=== PATIENT | male | born 1970 | race Caucasian/White ===

== ENCOUNTER 2020-01-08 01:54 | Outpatient (CLI) | payer MEDICAID, SELFPAY ==
[2020-01-09 15:04] LABS: SARS-CoV-2 RNA Not Detected (NotDetected); SARS-CoV-2 RNA Source Nasal/Nares
== END 2020-01-08 02:14 ==
PROVIDERS: Visit Provider Surgery
DX: Z11.59 Encounter for screening for other viral diseases (principal); Z01.818 Encounter for other preprocedural examination
CPT/HCPCS: U0003

== ENCOUNTER 2020-01-13 09:06 | Day surgery (SDC) | payer MEDICAID, SELFPAY ==
--- NOTE | 2020-01-13 06:55 | W.COLOREPORT ---
Date of service: 01/13/20 Time of Service: 11:32 Colonoscopy Report Date of procedure: 01/13/20 Pre-op diagnosis general: Colon Cancer screening Post-op diagnosis procedure note: other (ascending polyp, sigmoid polyp x2, rectal polyp) Procedure: Colonoscopy with polypectomy Surgeon: Courtney Tim Anesthesia proc note operative: other (General/ASA 2/Rj Carvajal, MARIA VICTORIA) Estimated blood loss (mL): 5 Pathology: other (Ascending colon, sigmoid polyp x2, rectal polyp) Complications: None Disposition: same day Indications: The patient is here for Colonoscopy pre-op. He has no family history of colon cancer. He has not had any bowel habit changes. -Discussed colonoscopy bowel prep as well as the procedure. Discussed possible complications of the procedure to include bleeding, pain, perforation, missed small lesion/polyp, sore throat, aspiration and adverse reaction to the medications. Questions were answered to patient?s satisfaction. No guarantees were implied or given. Prep: Miralax/Dulcolax Procedure Start Time: 10:12 Procedure End Time: 11:04 Retraction Time: 44 minutes Findings: 4 small sessile polyps Procedure Description: After informed consent was obtained the patient was taken to the procedure room and placed in a left decubitous position. Monitors were applied and a time out was done. The patients name, date of , procedure, allergies to medications and metal in their body was reviewed. The patient was then sedated. Once sedated and comfortable a rectal exam was done. External exam was normal. Internal exam revealed a normal sphincter tone and no palpable masses. The prostate felt smooth. The scope was then introduced and retro-flexed. No internal hemorrhoids were identified. The scope was then advanced to the cecum without difficulty. The ileocecal valve and appendiceal orifice were identified. The prep was good. The scope was then slowly retracted over 44 minutes back into the rectum. Polyps were removed with cold forceps in the ascending colon, sigmoid colon x2 and rectum x1. The polyp in the ascending colon was small and sessile. It took 20 minutes to remove this polyp due to its location behind a fold. There was also moderate diverticulosis of the sigmoid colon. The scope was removed and the patient was woken up and taken back to Same day surgery in stable condition. The patient tolerated the procedure well and there were no immediate complications. Follow up: The patient should follow up in 3-5 years unless they develop changes in bowel habits or other new gastrointestinal complaints.
--- NOTE | 2020-01-13 06:57 | W.PM.DSUDISC ---
Discharge Plan Disposition Patient Disposition: HOME Condition: Good Discharge Details Reason For Visit: colonoscopy Attending Provider: Courtney Tim Primary Care Provider: None,None Home Meds and New Rx's Prescriptions: Continued nicotine (polacrilex) 2 mg gum 2 mg buccal Q2H RF: 0 epinephrine [EpiPen] 0.3 mg/0.3 mL auto-injector 0.3 mg IM ONCE RF: 0 Chantix Starting Month Box 0.5 mg (11)- 1 mg (42) tablets,dose pack See Rx Instructions PO PER PKG DIR RF: 0 meloxicam 15 mg tablet 15 mg PO DAILY RF: 0 magnesium 200 mg tablet 200 mg PO DAILY RF: 0 hydroxychloroquine [Plaquenil] 200 mg tablet 200 mg PO DAILY RF: 0 medical marijuana inhalation RF: 0 Discontinued polyethylene glycol 3350 17 gram/dose powder 238 g PO ONCE Qty: 238 RF: 0 bisacodyl [Dulcolax (bisacodyl)] 5 mg tablet,delayed release (DR/EC) 5 mg PO ONCE Qty: 4 RF: 0 Discharge Instructions Instructions: Colorectal Polyps (DC), Diverticulosis (GEN) Additional Instructions: Findings: 4 polyps Follow up:3-5 years Please call if you develop: fevers >101.5 Nausea or Vomiting Abdominal pain that is not transient DAY SURGERY UNIT POST ENDOSCOPY INSTRUCTIONS 1. Because there will be medication in your system for the next 24 hours, you may feel a little sleepy. Your coordination will be affected. Therefore: a. Do not drive or operate dangerous equipment for 24 hours. b. Do not drink alcohol beverages for 24 hours (not even beer). c. Plan to go home and rest for the day. 2. Generally there are no restrictions on your activity after a day or so has gone by, but you may feel a bit fatigued for a few days. 3 After you arrive home you may have a light meal and return to a normal diet as you can tolerate it without feeling sick to your stomach. 4. After surgery, you may feel pain or discomfort. This should be only transient, but if it persists please contact your doctor. 5. If there are any questions regarding the findings of your procedure, please feel free to contact your doctor. 6. If you are unable to contact your doctor with a problem, contact the hospital at [phone]. 7. Continue all your regular medications unless directed otherwise. I understand the above instructions and have no questions. Signature of Patient or Responsible Adult Escort Date/Time Name of Responsible Adult Escort Signature of Nurse Date/Time Activity:: Activity as Tolerated Diet:: high fiber diet Discharge Orders Discharge Orders: Discharge Order (Routine); Ordered 01/13/20 Ordered By: Courtney Tim
[2020-01-13 09:15] VITALS: BP 125/82; PULSE 72; RESP 16; TEMP 36.3; O2SAT 99
[2020-01-13] MEDS: Lactated Ringers 1,000 ML 80 ML IV (09:30)
--- NOTE | 2020-01-13 10:24 | BOWEL_PTH ---
PATIENT: Curtis Colin LOC: [facility] U#:[id number] AGE/SX: 50/M ROOM: RE01/13/[address]: Courtney Tim MD : [id number] BED: DIS: 01/13/2020 SPEC #: [id number] RECD: 01/13/20 12:43 STATUS: HIEN REQ #: [id number] NATA: 01/13/20 10:[address]: Courtney Tim DEPT: Surgical Specimen RECD BY: Emily Maradiaga ENTERED: 01/13/20 12:44 SP TYPE: Bowel OTHR DR: None Tissues: 1 - BIOPSY BOWEL 2 - BIOPSY BOWEL 3 - BIOPSY BOWEL Procedures: GROSS AND MICRO LEVEL 4 Comments: [id number]
[2020-01-13 11:54] VITALS: BP 131/77; PULSE 56; RESP 18; TEMP 36.2; O2SAT 99
== END 2020-01-13 12:17 | disposition home or self-care (01) ==
PROVIDERS: Visit Provider Surgery
PROC: 0DJD8ZZ Inspection of Lower Intestinal Tract, Via Natural or Artificial Opening Endoscopic (ICD-10-PCS; CPT 45378; principal; 2020-01-13 09:45)
DX: Z12.11 Encounter for screening for malignant neoplasm of colon (principal); K57.30 Diverticulosis of large intestine without perforation or abscess without bleeding; D12.2 Benign neoplasm of ascending colon; K62.1 Rectal polyp
CPT/HCPCS: 45380; 88305; J2001

== ENCOUNTER 2020-10-12 14:05 | Emergency (ER) | payer MEDICAID, SELFPAY ==
[2020-10-12 14:15] VITALS: BP 132/68; PULSE 65; RESP 16; TEMP 36.8; O2SAT 98
--- NOTE | 2020-10-12 14:36 | ED.GENADUL_ITS ---
Discharge Plan Disposition Patient Disposition: HOME Condition: Good Discharge Details Clinical Impression: Sebaceous cyst, Cellulitis Primary Care Provider: Unknown,Unknown ED Provider: Emily Dickson Home Meds and New Rx's Prescriptions: New cephalexin 500 mg capsule 500 mg PO Q6H 7 Days Qty: 28 RF: 0 Continued nicotine (polacrilex) 2 mg gum 2 mg buccal Q2H RF: 0 epinephrine [EpiPen] 0.3 mg/0.3 mL auto-injector 0.3 mg IM ONCE RF: 0 Chantix Starting Month Box 0.5 mg (11)- 1 mg (42) tablets,dose pack See Rx Instructions PO PER PKG DIR RF: 0 meloxicam 15 mg tablet 15 mg PO DAILY RF: 0 magnesium 200 mg tablet 200 mg PO DAILY RF: 0 hydroxychloroquine [Plaquenil] 200 mg tablet 200 mg PO DAILY RF: 0 medical marijuana inhalation RF: 0 Discharge Instructions Instructions: Cellulitis (ED) Additional Instructions: Please follow-up for like removal in 72 hours Follow-up with surgery as you will likely need to have the capsule for the cyst removed in the upcoming months Take antibiotics as prescribed Warm compress at least 2 times daily Try not to remove the wick from the wound, if it does fall out, you do not need to return to the emergency room, however recheck in 72 hours might be helpful Please return if redness, fever, worsening pain We may need to repack in 7 days Referrals: Ayde Hua DO [OSTEOPATHIC DOCTOR] - Discharge Data Discharge Date/Time-TO BE ENTERED AT DEPARTURE: 10/12/20 15:27 Medical Decision Making Irrigated copiously, wick placed Recheck in 48 hours recommended, may need repacking Placed on Keflex No indication for wound culture Surgical referral supplied Afebrile nontoxic in appearance Neurovascularly intact pre and post procedure Ibuprofen and Tylenol for pain control recommended Post I&D dressing applied Medical Records Medical records reviewed: Yes I reviewed the patient's medical records. HPI General Date/Time Provider Initiated Documentation: 10/12/20 14:25 . Limitations to Documentation: no limitations . Information obtained by: patient . HPI Narrative: This 50-year-old gentleman presents for follow-up to left axillary region for the past several months. States that 1 week ago he was at [facility] and they attempted to express the area and it has become dramatically larger since that time. Was not prescribed antibiotics. Denies any fever or chills. States the redness is spread significantly. Denies any history of diabetes has no pain. Very tender. Denies history of IV drug abuse. Related Data Home Medications Medication Instructions Recorded Confirmed epinephrine 0.3 mg/0.3 mL 0.3 mg IM ONCE 12/04/19 10/12/20 injection, auto-injector hydroxychloroquine 200 mg tablet 200 mg PO DAILY 12/04/19 10/12/20 magnesium 200 mg tablet 200 mg PO DAILY 12/04/19 10/12/20 medical marijuana INHALATION 12/04/19 01/02/20 meloxicam 15 mg tablet 15 mg PO DAILY 12/04/19 10/12/20 nicotine (polacrilex) 2 mg gum 2 mg BUCCAL Q2H 12/04/19 10/12/20 varenicline 0.5 mg (11)-1 mg (42) See Rx Instructions PO PER PKG DIR 12/04/19 10/12/20 tablets in a dose pack cephalexin 500 mg PO Q6H 7 Days #28 cap 10/12/20 Previous Rx's Medication Instructions Recorded cephalexin 500 mg PO Q6H 7 Days #28 cap 10/12/20 Allergies Allergy/AdvReac Type Severity Reaction Status Date / Time bee venom protein (honey bee) Allergy Intermediate Swelling/Ed Unverified 10/12/20 14:24 [place] General Stated Complaint: Cellulitis IDALIA: 3 Review of Systems All systems reviewed & are unremarkable except as noted in HPI and below PFSH Medical History (Updated 10/12/20 @ 15:16 by RICHIE Woo) Chronic neck pain Lipoma Lyme arthritis Lyme disease Smoker Spinal stenosis of cervical region Swelling of knee joint Surgical History (Updated 01/13/20 @ 09:21 by Lizzy Michel RN) H/O vasectomy History of dental surgery 8 caps Kidney Stone Extraction Family History Mother Personal history of malignant neoplasm Father No problems noted. Sister Brain aneurysm Brother No problems noted. Social History (Updated 01/02/20 @ 10:31 by RICHIE Mcrae) Smoking/Tobacco Use Status: Current every day Tobacco Type: cigarettes Smoking packs per day: 1 Smoking cigarettes per day: 20.0 Tobacco: How many years used: 30 Smoking risk assessment performed?: Yes Alcohol Intake: current Alcohol Intake frequency: a few times a month Drug use: Daily Substance use type: marijuana Do you feel safe at home: Yes Do you feel safe in your relationship?: Yes Exam Const General: cooperative, comfortable and no acute distress Eyes Sclera: sclerae normal Resp Effort & Inspection: normal respiratory effort Cardio Rate: regular rate Skin Full body images: 1. Large abscess noted to right axillary region with surrounding lymphangitis and cellulitis Neuro General: patient alert and patient oriented x3 Extrem Other: Distal pulses intact Course Vital Signs Vital signs: Vital Signs Temperature 36.8 C 10/12/20 14:15 Pulse 65 10/12/20 14:15 Respiratory Rate 16 10/12/20 14:15 Blood Pressure 132/68 10/12/20 14:15 Pulse Oximetry 98 10/12/20 14:15 Temperature 36.8 C 10/12/20 14:15 Temperature Source Temporal Artery Scan 10/12/20 14:15 Pulse 65 10/12/20 14:15 Respiratory Rate 16 10/12/20 14:15 Respiratory Effort Non-Labored 10/12/20 14:23 Blood Pressure 132/68 10/12/20 14:15 Blood Pressure Position Sitting 10/12/20 14:15 Pulse Oximetry 98 10/12/20 14:15 Oxygen Delivery Method Room Air 10/12/20 14:15 Oxygen Flow Rate 0 10/12/20 14:15 Pain Level 4 10/12/20 14:15 Procedures Abscess I/D Site: Upper Extremity Side (if applicable): Left Sedation/analgesia: None Local Anesthetic: Lidocaine 1% Amount of anesthesia used (mL): 7 Technique: Incised with #11 Blade Amount of fluid expressed (mL): 20 Irrigation: Yes Packing used?: Iodoform Complications: Pain, Bleeding and Nerve Injury
== END 2020-10-12 15:27 | disposition home or self-care (01) ==
PROVIDERS: Emergency Provider Physician Assistant
DX: L72.3 Sebaceous cyst (principal); L03.112 Cellulitis of left axilla
CPT/HCPCS: 10061

== ENCOUNTER 2021-01-04 02:38 | Outpatient (CLI) | payer MEDICAID, SELFPAY ==
[2021-01-04 10:28] LABS: Source Nasal/Nares
[2021-01-04 17:39] LABS: COVID-19 PCR Negative (Negative)
== END 2021-01-04 02:39 | disposition home or self-care (01) ==
LOC: LBO 02:39
PROVIDERS: Visit Provider Surgery
DX: Z20.822 Contact with and (suspected) exposure to COVID-19 (principal)
CPT/HCPCS: 87635

== ENCOUNTER 2021-01-06 06:14 | Day surgery (SDC) | payer MEDICAID, SELFPAY ==
--- NOTE | 2021-01-06 06:36 | W.PM.OP ---
Date of service: 01/06/21 Time of Service: 08:16 Operative Note Operative Note DATE OF PROCEDURE: 01/06/21 PRE-OP DIAGNOSIS: left Axillary sebaceous cyst Lipoma base of neck right side POST-OP DIAGNOSIS: same PROCEDURE: Excision of sebaceous cyst and lipoma SURGEON: Courtney Tim PLSQL DEVELOPER: [place] ANESTHESIA TYPE: Local By Surgeon (Exparel 10 cc mixed with 0.5% Bupivocaine with epi) ESTIMATED BLOOD LOSS: 3 PATHOLOGY: none sent COMPLICATIONS: None Patient was transported to: same day Patient's condition: stable Implants: none Indications: (1) Sebaceous cyst: Status: Acute Assessment and plan: A: Left axillary sebaceous cyst. Well healed P: Excision in the OR Risks, benefits, complications of the procedure were reviewed with him. Patient agreed to bleeding, infection, recurrence and after restrictions medications. Questions were entertained and answered to his satisfaction and he wished to proceed. No guarantees were given or implied. (2) Lipoma: Status: Acute Assessment and plan: 5 cm lipoma at the base of the neck on the right side Proceed with excision in the OR Risks, benefits and complications were reviewed. Occasions include but are not to bleeding, infection, recurrence, hematoma, seroma, wound dehiscence and adverse reaction to the medications. Questions were entertained and answered to his satisfaction. No guarantees were given or implied. Procedure Description: After informed consent was obtained the patient was taken to the Operating room and placed in a supine position. Monitors were applied and a time out was done. Next the left axilla was prepped and draped in a standard fashion. The Dermis and subcutaneous tissue was injected with the above anesthetic. An elliptical incision was made around the incision site. Dissection was done around the capsule using sharp dissection with litlers. Once the cyst was completely removed the wound was irrigated. The dermis was then closed with 4-0 vicryl running stitch. The skin was cleaned and dried and skin affix was applied. Next the patient was placed on his stomach. The base of his neck on the right was prepped and draped in a standard fashion. The local was injected into the dermis and subcutaneous tissue. A 2.5 cm incision was made over the palpable lipoma. Dissection was done around the lipoma with littlers and cautery. The lipoma was removed piecemeal. Once completely removed the cavity was cleaned with saline. Bleeding was stopped using cautery. Once the wound was dry the subcutaneous tissue was re-approximated with 3-0 vicryl. The dermis was closed with 4-0 vicryl running suture. The skin was cleaned and dried and skin affix was applied.
--- NOTE | 2021-01-06 06:36 | W.PREOPHP ---
Date of service: 01/06/21 Assessment and Plan Assessment and plan (1) Sebaceous cyst: Status: Acute Assessment and plan: A: Left axillary sebaceous cyst. Well healed P: Excision in the OR Risks, benefits, complications of the procedure were reviewed with him. Patient agreed to bleeding, infection, recurrence and after restrictions medications. Questions were entertained and answered to his satisfaction and he wished to proceed. No guarantees were given or implied. (2) Lipoma: Status: Acute Assessment and plan: 5 cm lipoma at the base of the neck on the right side Proceed with excision in the OR Risks, benefits and complications were reviewed. Occasions include but are not to bleeding, infection, recurrence, hematoma, seroma, wound dehiscence and adverse reaction to the medications. Questions were entertained and answered to his satisfaction. No guarantees were given or implied. Qualifiers: Lipoma location: neck Qualified Code(s): D17.0 - Benign lipomatous neoplasm of skin and subcutaneous tissue of head, face and neck History of Present Illness Narrative: 50 y/o male presents in follow up after having an infected sebaceous cyst I&D in the ER on 10/12/20. He was also treated with a 7 day course of cephalexin. Patient denies any pain at this time. Denies having any redness, swelling or drainage from the area. Also of note he reports having a mass on the right side of his neck, which he was previously told was a lipoma. He was going to have this removed, however did not follow through secondary to concern about going into the OR. Denies chest pain, palpitations, dyspnea or dyspnea with exertion. Denies personal or family history of adverse reactions to anesthesia. Denies any history of [place], stroke, seizures, bleeding or clotting disorders. Denies having any implanted metal. Denies any history of chemotherapy or radiation. No new health changes since he was seen in november Review of Systems Cardiovascular Cardiovascular: Denies chest pain, Denies chest pain at rest, Denies irregular heart rhythm, Denies dyspnea and Denies dyspnea on exertion Respiratory Respiratory: Denies cough, Denies dyspnea and Denies dyspnea on exertion Gastrointestinal Gastrointestinal: Reports as per HPI Genitourinary Genitourinary: Denies dysuria, Denies urinary incontinence and Denies urinary urgency Endocrine Endocrine: Reports system reviewed and no additional complaints, except as documented Hematologic/Lymphatic Hematologic/Lymphatic: Denies easy bruising and Denies lymphadenopathy [facility] Active Problem List Skin lesion (Acute) Sebaceous cyst (Acute) Cellulitis (Acute) Hyperplastic colon polyp (Acute) Tubular adenoma of colon (Acute) Medical History Chronic neck pain Lipoma Lyme arthritis Lyme disease Smoker Spinal stenosis of cervical region Swelling of knee joint Surgical History H/O vasectomy History of dental surgery 8 caps Kidney Stone Extraction Family History Mother Personal history of malignant neoplasm Father No problems noted. Sister Brain aneurysm Brother No problems noted. Social History Smoking/Tobacco Use Status: Current every day Tobacco Type: cigarettes Smoking packs per day: 1 Smoking cigarettes per day: 20.0 Tobacco: How many years used: 30 Smoking risk assessment performed?: Yes Alcohol Intake: current Alcohol Intake frequency: a few times a month Drug use: Daily Substance use type: marijuana Do you feel safe at home: Yes Do you feel safe in your relationship?: Yes Meds Allergies and Home Medications Allergies Allergy/AdvReac Type Severity Reaction Status Date / Time bee venom protein (honey bee) Allergy Intermediate Swelling/Ed Unverified 01/06/21 06:33 [place] Home Medications Medication Instructions Recorded Confirmed Type epinephrine 0.3 mg/0.3 mL 0.3 mg IM ONCE 12/04/19 11/15/20 History injection, auto-injector magnesium 200 mg tablet 200 mg PO DAILY 12/04/19 11/15/20 History medical marijuana INHALATION 12/04/19 11/15/20 History nicotine (polacrilex) 2 mg gum 2 mg BUCCAL Q2H 12/04/19 11/15/20 History varenicline 0.5 mg (11)-1 mg (42) See Rx Instructions PO PER PKG DIR 12/04/19 11/15/20 History tablets in a dose pack Exam Const General: healthy appearing and comfortable Neck Neck images: 1. lipoma Resp Effort & Inspection: normal respiratory effort Auscultation: clear to auscultation bilaterally Cardio Rate: regular rate Rhythm: regular rhythm Heart Sounds: no click, no gallops and no murmurs
[2021-01-06 06:38] VITALS: BP 131/85; PULSE 63; RESP 16; TEMP 37; O2SAT 99
--- NOTE | 2021-01-06 06:50 | W.PM.DSUDISC ---
Discharge Plan Disposition Patient Disposition: HOME Condition: Good Discharge Details Reason For Visit: Excision of lipoma and sebaceous cyst Attending Provider: Courtney Tim Primary Care Provider: Unknown,Unknown Home Meds and New Rx's Prescriptions: Continued nicotine (polacrilex) 2 mg gum 2 mg buccal Q2H RF: 0 epinephrine [EpiPen] 0.3 mg/0.3 mL auto-injector 0.3 mg IM ONCE RF: 0 Chantix Starting Month Box 0.5 mg (11)- 1 mg (42) tablets,dose pack See Rx Instructions PO PER PKG DIR RF: 0 magnesium 200 mg tablet 200 mg PO DAILY RF: 0 medical marijuana inhalation BID RF: 0 Discharge Instructions Additional Instructions: Activity at Home after surgery: 1. As tolerated Diet, Nutrition, & wound healin. As tolerated Pain Medications: 1. Tylenol 650mg every 6 hours as needed and Ibuprofen 600 mg every 6 hours as needed. You may alternate between the 2 medications every 3 hours 2. If a narcotic has been prescribed take as directed only for breakthrough pain For Constipation: 1. Take Milk of Magnesia or MiraLax as needed for constipation Other: 1. You may shower daily. Do not scrub the incisions 2. Do not soak the incisions for 1 week 3. You may alternate ice and heat as needed for pain and swelling Wound Care: 1. Keep the incisions clean and dry Please call our office if you develop: 1. Fevers >101.5 2. Nausea or Vomiting 3. Worsening pain 4. Redness and thick discharge from the wounds If after hours please call the Hospital at and ask to speak to the on-call surgeon Activity:: Activity as Tolerated Diet:: As Tolerated Discharge Orders Discharge Orders: Discharge Order (Routine); Ordered 01/06/21 Ordered By: Courtney Tim DS: Diagnosis Discharge Diagnosis (1) Sebaceous cyst: Status: Acute (2) Lipoma: Status: Acute
[2021-01-06] MEDS: Bupivacaine LIPOSOME/PF 133 MG/10 ML VIAL IJ (08:03)
[2021-01-06 08:24] VITALS: BP 158/81; PULSE 57; RESP 16; TEMP 37.2; O2SAT 100
== END 2021-01-06 06:15 | disposition home or self-care (01) ==
PROVIDERS: Visit Provider Surgery
PROC: (CPT 21552; principal; 2021-01-06 07:30)
DX: L72.3 Sebaceous cyst (principal); D17.0 Benign lipomatous neoplasm of skin and subcutaneous tissue of head, face and neck
CPT/HCPCS: 21552; 11400

== ENCOUNTER 2022-04-15 11:40 | Emergency (ER) | payer MEDICAID, SELFPAY ==
[2022-04-15 11:45] VITALS: BP 141/73; PULSE 68; RESP 16; TEMP 36.6; O2SAT 100
--- NOTE | 2022-04-15 12:56 | ED.GENADUL_ITS ---
Discharge Plan Disposition Patient Disposition: Home Condition: Stable Discharge Details Clinical Impression: Abscess of buttock, right Primary Care Provider: None,None ED Provider: Murali Carpenter Home Meds and New Rx's Prescriptions: New sulfamethoxazole-trimethoprim [Bactrim DS] 800-160 mg tablet 1 tab PO BID Qty: 14 0RF Continued epinephrine [EpiPen] 0.3 mg/0.3 mL auto-injector 0.3 mg IM ONCE Rx Instructions: as a single dose medical marijuana inhalation BID Discontinued nicotine (polacrilex) 2 mg gum 2 mg buccal Q2H Patient Comments: 04/15/2022 Pt reports he does not use varenicline [Chantix Starting Month Box] 0.5 mg (11)- 1 mg (42) tablets,dose pack See Rx Instructions PO PER PKG DIR Patient Comments: 04/15/2022 Pty reports he does not use Rx Instructions: PO PER PKG DIR magnesium 200 mg tablet 200 mg PO DAILY Patient Comments: Pt reports he does not use 04/15/2022 Discharge Instructions Instructions: Abscess (ED) Additional Instructions: Your abscess has been drained and you may continue to use [id number] pain medication as needed for discomfort. There is also wound packing that was placed and you can leave this in place for the next 72 hours and then feel free to remove packing or return to the emergency department for removal. As long as wound is healing well, you have no fever chills, no worsening symptoms you may follow-up with your primary care provider in 1 week for wound recheck otherwise return to the emergency department immediately for any worsening of your condition. Stand Alone Forms: Work Release Referrals: Primary Care Provider [Outside] - 1 week (Or local urgent care) Discharge Data Discharge Date/Time-TO BE ENTERED AT DEPARTURE: 04/15/22 13:11 Medical Decision Making Patient presenting to the emergency department for chief complaint of abscess to right buttock. He states this has been recurrent but sometimes does pop on its own. Patient denies any other rash sores or lesions fever chills. Physical exam shows abscess to right buttock. Does not appear to track near rectum and I have low suspicion that this involves any internal structures. Discussed with patient risk versus benefit of incision and drainage which she agreed to have abscess drained. Please see procedure note for drainage. Patient was placed on Bactrim due to depth of abscess and packing was also placed. Did discuss with patient removal of packing on his own if tolerated or to return for packing removal and wound recheck. After discussion of diagnosis and plan of care patient has no further needs, questions, or concerns and states clear understanding to return to the emergency department for any worsening symptoms. This documentation was generated using [employer] dictation system, please disregard any oddities of phrase or misspellings. HPI General Mode of arrival: ambulatory . Date/Time Provider Initiated Documentation: 04/15/22 11:46 . Limitations to Documentation: no limitations . Information obtained by: patient and RN notes reviewed . History of Present Illness 52 year old M presents to the emergency department with the chief complaint of Buttock abscess, described as moderate, with intensity rated at 8. and is localized to the buttocks and right. Patient reports no radiation. Patient started experiencing this week(s) and it has been constant. No relieving factors improve symptom(s), No exacerbating factors reported . Patient notes no other symptoms.. Patient did receive the following treatments prior to arrival, none Related Data Home Medications Medication Instructions Recorded Confirmed epinephrine 0.3 mg/0.3 mL 0.3 mg IM ONCE 12/04/19 04/15/22 injection, auto-injector (EpiPen) medical marijuana inh inhalation BID 12/04/19 11/15/20 sulfamethoxazole 800 1 tab PO BID #14 tabs 04/15/22 mg-trimethoprim 160 mg tablet (Bactrim DS) Previous Rx's Medication Instructions Recorded sulfamethoxazole 800 1 tab PO BID #14 tabs 04/15/22 mg-trimethoprim 160 mg tablet (Bactrim DS) Allergies Allergy/AdvReac Type Severity Reaction Status Date / Time bee venom protein (honey bee) Allergy Intermediate Swelling/Ed Unverified 04/15/22 11:49 [facility] Stated Complaint: RashLesion IDALIA: 4 Review of Systems Narrative: 6 systems reviewed and unremarkable except what is marked below. Integumentary/Breasts Skin/Breast: Reports as per HPI, Reports erythema, Reports skin pain and Reports skin swelling PFSH All Active Problems (Updated 04/15/22 @ 12:57 by Murali Carpenter NP) Abscess of buttock, right (Acute) Lipoma (Acute) Skin lesion (Acute) Sebaceous cyst (Acute) Cellulitis (Acute) Hyperplastic colon polyp (Acute) Tubular adenoma of colon (Acute) Active Problem List Skin lesion (Acute) Sebaceous cyst (Acute) Cellulitis (Acute) Hyperplastic colon polyp (Acute) Tubular adenoma of colon (Acute) Medical History Chronic neck pain Lipoma Lyme arthritis Lyme disease Smoker Spinal stenosis of cervical region Swelling of knee joint Surgical History H/O vasectomy History of dental surgery 8 caps Kidney Stone Extraction Family History Mother Personal history of malignant neoplasm Father No problems noted. Sister Brain aneurysm Brother No problems noted. Social History Smoking/Tobacco Use Status: Current every day Tobacco Type: cigarettes Smoking packs per day: 1 Smoking cigarettes per day: 20.0 Tobacco: How many years used: 30 Smoking risk assessment performed?: Yes Alcohol Intake: current Alcohol Intake frequency: a few times a month Drug use: Daily Substance use type: marijuana Details: Reports none today Do you feel safe at home: Yes Do you feel safe in your relationship?: Yes Exam Const General: cooperative, no acute distress and not ill appearing Orientation: alert, awake and oriented x3 Resp Effort & Inspection: normal respiratory effort, able to speak in complete sentences and no respiratory distress Skin General skin exam: fluctuance (Erythematous abscess to right mid medial buttock) Neuro General: patient alert, patient awake, patient oriented x3, moves all extremities and no focal motor deficits Course Vital Signs Vital signs: Vital Signs Temperature 36.6 C 04/15/22 11:45 Pulse 68 04/15/22 11:45 Respiratory Rate 16 04/15/22 11:45 Blood Pressure 141/73 H 04/15/22 11:45 Pulse Oximetry 100 04/15/22 11:45 Temperature 36.6 C 04/15/22 11:45 Temperature Source Oral 04/15/22 11:45 Pulse 68 04/15/22 11:45 Respiratory Rate 16 04/15/22 11:45 Respiratory Effort Normal 04/15/22 11:48 Blood Pressure 141/73 H 04/15/22 11:45 Blood Pressure Position Standing 04/15/22 11:45 Pulse Oximetry 100 04/15/22 11:45 Oxygen Delivery Method Room Air 04/15/22 11:45 Oxygen Flow Rate 0 04/15/22 11:45 Pain Level 10 04/15/22 11:45 Procedures Abscess I/D Site: Other (Buttock) Side (if applicable): Right Local Anesthetic: Lidocaine 1% Amount of anesthesia used (mL): 10 Technique: Incised with #11 Blade Amount of fluid expressed (mL): 5 Irrigation: No Packing used?: Plain Complications: Pain
[2022-04-15] MEDS: Sulfameth/Trimeth DS TAB 1 TAB PO (13:03)
[2022-04-15 13:11] VITALS: BP 136/85; PULSE 71; RESP 18; O2SAT 97
== END 2022-04-15 13:11 | disposition home or self-care (01) ==
PROVIDERS: Emergency Provider Nurse Practitioner Family
DX: L02.31 Cutaneous abscess of buttock (principal)
CPT/HCPCS: 10061; 99283

== ENCOUNTER 2022-08-03 09:20 | Outpatient (CLI) | payer MEDICAID, SELFPAY ==
--- NOTE | 2022-08-03 09:00 | DI.RAD_ITS ---
Exam(s) XR ELBOW RT COMPLETE EXAM: XR ELBOW RT COMPLETE CLINICAL HISTORY: right elbow pain. TECHNIQUE: 2D digital imaging was performed of the left elbow. Three images were obtained. AP, lat eral and oblique views were obtained. COMPARISON: No exams were available for comparison FINDINGS: BONES: No acute fracture is present. No bony destructive lesion is seen. JOINTS: The elbow is normally aligned. No joint effusion is seen. SOFT TISSUE: Normal. IMPRESSION: Unremarkable radiographs of the right elbow. DATA REPOSITORY: RADIATION DOSE DELIVERED:
== END 2022-08-03 09:21 | disposition home or self-care (01) ==
LOC: DIORS 09:21
PROVIDERS: PCP Nurse Practitioner; Referring Provider Nurse Practitioner; Visit Provider Student in an Organized Health Care Education/Training Program
DX: M25.521 Pain in right elbow (principal)
CPT/HCPCS: 73080

== ENCOUNTER 2024-12-13 10:54 | Outpatient (REF) | payer SELFPAY ==
[2024-12-13 21:43] LABS: Abs Immature Grans 0.03 10^3/uL (0.0-0.06); HCT 47.2 % (40.0-50.0); HGB 15.8 g/dL (13.5-17.5); Immature Grans % 0.2 %; MCH 31.4 pg (27.0-33.0); MCHC 33.5 % (32.0-36.0); MCV 94 fL (80-95); MPV 12.7 fL (8.0-11.0); Platelet Count 158 10^3/uL (130-400); RBC 5.03 10^6/uL (4.36-5.78); RDW 13.3 % (11.8-14.1); RDW-SD 45.4 fL; WBC 12.41 10^3/uL (4.4-10.8)
[2024-12-13 22:00] LABS: ALT 28 U/L (16-63); AST 26 U/L (15-37); Albumin 4.0 g/dL (3.4-5.0); Alkaline Phosphatase 104 U/L (46-116); Anion Gap 7.4 mmol/L (3-11); BUN 12 mg/dL (7-18); Bilirubin, Total 0.6 mg/dL (0.2-1.0); CO2 29.6 mmol/L (21.0-32.0); Calcium 9.4 mg/dL (8.5-10.1); Chloride 99 mmol/L (98-107); Glucose 95 mg/dL (74-106); Potassium 4.0 mmol/L (3.5-5.1); Sodium 136 mmol/L (136-145); Total Protein 7.3 g/dL (6.4-8.2)
== END 2024-12-13 10:55 | disposition home or self-care (01) ==
LOC: LBN 10:54
PROVIDERS: PCP Nurse Practitioner; Visit Provider Physician Assistant Medical
DX: R10.A1 Flank pain, right side (principal)
CPT/HCPCS: 80053; 85025